=== PATIENT | female | born 1995 | race Two or more races ===

== ENCOUNTER 2020-06-07 01:21 | Emergency (ER) | payer SELFPAY ==
--- NOTE | ~2020-06-07 | XR_ITS ---
EXAMINATION: XR chest 1V portable DATE: 06/07/2020 01:58 INDICATION: Chest pain. Shortness of breath. TECHNIQUE: A single frontal view of the chest was obtained. COMPARISON: Chest CT 06/07/2020 FINDINGS: The chest demonstrates clear lungs without pneumonia, pleural effusion, or pneumothorax. Th e heart size is normal. IMPRESSION: 1. No acute cardiopulmonary disease. Reviewed, dictated and finalized at location A.
--- NOTE | ~2020-06-07 | CT_ITS ---
EXAMINATION: James Partida DATE: 06/07/2020 02:55 INDICATION: Epigastric abdominal pain. Chest pain. TECHNIQUE: Computed tomographic angiography (CTA) of the chest, abdomen, and pelvis was performed wit h 100 mL Omnipaque-350 intravenous contrast. Automated exposure control and iterative reconstruction technique were employed. The dose-length product was 563.54 mGy-cm. Maximum intensity projection 3D-r econstructions of the aorta and other arteries were constructed by the technologist on a separate wor kstation. COMPARISON: None. FINDINGS: CHEST CTA: There is no pneumonia or pleural effusion. The heart size is normal. No pericardial effusion. 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 Thoracic aorta is normal. There is no pulmonary embolus. ABDOMEN AND PELVIS CTA: The liver, spleen, pancreas, adrenal glands, and kidneys are normal. The gallbladder is distended. Th ere are no dilated loops of bowel. The appendix is normal. Abdominal aorta is normal. The mesenteric arteries and renal arteries are normal. There are no pathologically enlarged lymph nodes. There is no free intraperitoneal fluid. There is mild lumbar spondylosis. IMPRESSION: 1. Normal aorta. 2. Gallbladder distention, which may be secondary to fasting. Correlate with physical exam to exclude acute cholecystitis. Reviewed, dictated and finalized at location A. IMPRESSION: 1. Normal aorta. 2. Gallbladder distention, which may be secondary to fasting. Correlate with ph ysical exam to exclude acute cholecystitis.
[2020-06-07 01:21] VITALS: BP 125/60; PULSE 61; RESP 20; TEMP 36.7; O2SAT 100
--- NOTE | 2020-06-07 01:26 | ECG_ITS ---
Measurements Intervals [place] Rate: 57 P: 42 MN: 191 QRS: 63 QRSD: 89 T: 52 QT: 420 QTc: 410 Interpretive Statements SINUS BRADYCARDIA BASELINE WANDER- II, III, AVL, V2-V6 BORDERLINE ECG Electronically Signed On 06-07-2020 8:09:01 CDT by Navin Cagle D.O.
--- NOTE | 2020-06-07 01:31 | ED.CHESTPAIN ---
HPI - Chest Pain General Chief Complaint: Chest Pain Stated Complaint: diff breathing Time Seen by Provider: 06/07/20 01:28 History of Present Illness HPI narrative: previously healthy 25 yo female BIBEMS from home for chest pain. Sudden onset severe epigastric pain radiating to the chest and back for the past hour. Sharp in quality. Started while at home watching TV. Associated with shortness of breath and nausea. She has never had this type of pain before. No prior surgeries. Related Data Allergies Allergy/AdvReac Type Severity Reaction Status Date / Time No Known Allergies Allergy Unknown Verified 06/07/20 01:31 Review of Systems Review of Systems: All systems reviewed & are unremarkable except as noted in HPI and below Constitutional: Constitutional: Denies fever(s) Cardiovascular: Cardiovascular: Reports chest pain Respiratory: Respiratory: Reports dyspnea Gastrointestinal: Gastrointestinal: Reports abdominal pain and Reports nausea Musculoskeletal: Musculoskeletal: Reports back pain Neurologic: Denies numbness and Denies weakness PMFSH Social History Social History (Updated 06/07/20 @ 04:27 by James Partida MD) Smoking status: Never smoker Exam Const: General: alert Orientation/consciousness: patient oriented x3 Other: Mild distress HENMT: Head: normal to inspection Chest: Chest palpation & inspection: normal inspection of the chest and no tenderness Resp: Effort & Inspection: tachypneic Auscultation: clear to auscultation bilaterally Cardio: Rate: regular rate Rhythm: regular rhythm GI: Other: Moderate epigastric tenderness w/o rebound or guarding Skin: General skin exam: normal color Neuro: General: patient oriented x3, moves all extremities and CN's II-XI intact bilaterally Speech: normal speech Extrem: General: normal to inspection and no edema Course Vital Signs Vital signs: Vital Signs Temperature 36.7 C 06/07/20 01:21 Pulse Rate 61 06/07/20 01:21 Respiratory Rate 20 06/07/20 01:21 Blood Pressure 125/60 06/07/20 01:21 Pulse Oximetry 100 06/07/20 01:21 Temperature 36.7 C 06/07/20 01:21 Pulse Rate 64 06/07/20 03:58 Respiratory Rate 19 06/07/20 03:58 Blood Pressure 101/82 06/07/20 03:58 Pulse Oximetry 100 06/07/20 03:58 MDM - Chest Pain MDM Narrative Medical decision making narrative: EKG shows sinus jane. troponin negative. CTA shows distended galbladder with possible trace fluid. Mild elevation in white count. No fever. She is completely pain free on reevaluation. I will give her information for follow-up with general surgery. Medical Records Data Attestation: I reviewed the patient's medical records. Lab Data Attestation: I reviewed the patient's lab results. Result diagrams: 06/07/20 01:44 06/07/20 01:44 Labs: Lab Results 06/07/20 06/07/20 06/07/20 Range/Units 01:44 01:44 01:44 WBC 11.8 H (4.5-10.0) K/mm3 RBC 4.08 L (4.2-5.4) M/mm3 Hgb 12.4 (12.0-15.0) g/dL Hct 36.9 L (37.0-47.0) % MCV 90.4 (80-100) fl MCH 30.4 (26-34) pg MCHC 33.6 (32-36) g/dl RDW 12.5 (11.5-14.5) % Plt Count 278 (150-375) k/mm3 MPV 10.6 H (7.4-10.4) fl Immature Gran % (Auto) 0.3 (0-0.5) % Neut % (Auto) 57.8 (45.5-73.1) % Lymph % (Auto) 33.6 (18.3-44.2) % Rains % (Auto) 4.5 (2.6-8.5) % Eos % (Auto) 3.5 (0-4.4) % Baso % (Auto) 0.3 (0.2-1.2) % Lymph # (Auto) 3.97 H (0.9-3.2) K/mm3 Rains # (Auto) 0.5 (0.1-0.6) K/mm3 Eos # (Auto) 0.4 H (0-0.3) K/mm3 Baso # (Auto) 0.0 (0.0-0.1) K/mm3 Abs Immat Gran (auto) 0.03 (0.00-0.031) K/mm3 Absolute Neuts (auto) 6.8 H (1.3-6.7) K/mm3 Absolute Nucleated RBC 0.0 (0.0-0.012) K/mm3 Nucleated RBC % 0.0 (0.0-0.2) % D-Dimer 0.29 (<0.48) ug/mL Sodium 139 (137-145) mmol/L Potassium 3.3 L (3.4-5.0) mmol/L Chloride 101 (98-107) mmol/L Carbon Dioxide
[2020-06-07] MEDS: KETOROLAC 30 MG/ML VIAL (*BKC) IV PUSH (01:49)
[2020-06-07 01:52] LABS: Basophils Percent Auto 0.3 % (0.2-1.2); Eosinophils Absolute Auto 0.4 K/mm3 (0-0.3); Eosinophils Percent Auto 3.5 % (0-4.4); Hematocrit 36.9 % (37.0-47.0); Hemoglobin 12.4 g/dL (12.0-15.0); Immature Granulocyte Absolute 0.03 K/mm3 (0.00-0.031); Immature Granulocyte Percent A 0.3 % (0-0.5); Lymphocytes Absolute Auto 3.97 K/mm3 (0.9-3.2); Lymphocytes Percent Auto 33.6 % (18.3-44.2); Mean Corpuscular HGB Conc 33.6 g/dl (32-36); Mean Corpuscular Hemoglobin 30.4 pg (26-34); Mean Corpuscular Volume 90.4 fl (80-100); Mean Platelet Volume 10.6 fl (7.4-10.4); Monocytes Absolute Auto 0.5 K/mm3 (0.1-0.6); Monocytes Percent Auto 4.5 % (2.6-8.5); Neutrophils Absolute Auto 6.8 K/mm3 (1.3-6.7); Neutrophils Percent Auto 57.8 % (45.5-73.1); Platelet Count Result 278 k/mm3 (150-375); Red Blood Count 4.08 M/mm3 (4.2-5.4); Red Cell Distribution Width 12.5 % (11.5-14.5); White Blood Count 11.8 K/mm3 (4.5-10.0)
[2020-06-07 02:06] LABS: D Dimer 0.29 ug/mL (<0.48)
[2020-06-07 02:07] LABS: Alanine Aminotransferase 12 U/L (4-35); Albumin Level 4.7 g/dL (3.5-5.1); Alkaline Phosphatase 65 U/L (38-126); Anion Gap 15.3 mmol/L (7-16); Aspartate Amino Transferase 24 U/L (14-36); Bilirubin,Total 0.1 mg/dL (0.2-1.3); Blood Urea Nitrogen 27 mg/dL (7-17); Calcium 9.5 mg/dL (8.4-10.2); Carbon Dioxide 26 mmol/L (22-30); Chloride 101 mmol/L (98-107); Estimated CRCL calculation 136 ml/min; Estimated Glomerular Filt Rate > 60; Glucose 140 mg/dL (65-105); Potassium 3.3 mmol/L (3.4-5.0); Sodium 139 mmol/L (137-145)
[2020-06-07 02:09] LABS: Lipase 192 U/L (23-300)
[2020-06-07 02:18] LABS: Troponin I < 0.012 ng/mL (0.000-0.034)
[2020-06-07 02:38] VITALS: BP 122/78; PULSE 64; RESP 30; O2SAT 100
[2020-06-07] MEDS: MORPHINE SULFATE 2 MG/ML INJ IV PUSH (02:39)
[2020-06-07 03:37] LABS: Add Urine Microscopic? YES; Amorphous Sediment Urine Few; Appearance Urine Turbid (Clear); Bilirubin Urine Negative (Negative); Blood Urine 2+ (Negative); Color Urine Yellow (Yellow); Glucose Urine UA Negative (Negative); Ketones Urine Negative (Negative); Leukocyte Esterase Ur Negative LEU/UL (Negative); Mucus Urine Rare /lpf; Nitrate Urine Negative (Negative); Protein Urine Negative (Negative); Specific Grav Ur 1.024 (1.001-1.035); Squamous Epithelial Cell Urine Occasional /hpf (Few); Urobilinogen Urine Negative mg/dL (<2.0); WBC Urine 0-3 /hpf
[2020-06-07] MEDS: SODIUM CHLORIDE 0.9% IV 1,000 ML 150 ML IV CONT (03:57)
[2020-06-07] MEDS: SODIUM CHLORIDE 0.9% IV 1,000 ML 999 ML IV CONT (03:57)
[2020-06-07 03:58] VITALS: BP 101/82; PULSE 64; RESP 19; O2SAT 100
[2020-06-07] MEDS: ONDANSETRON INJ 4 MG/2 ML VIAL IV PUSH (03:58)
[2020-06-07 04:55] VITALS: BP 95/56; PULSE 54; RESP 18; O2SAT 100
== END 2020-06-07 05:10 | disposition home or self-care (01) ==
PROVIDERS: Emergency Provider Emergency Medicine
DX: K80.50 Calculus of bile duct without cholangitis or cholecystitis without obstruction (principal); R00.1 Bradycardia, unspecified
CPT/HCPCS: 36415; 71045; 71275; 74174; 80053; 81001; 81025; 83690; 84484; 85025; 85380; 93005; 96361; 96374; 96375; 99284; J1885; J2270; J2405; J7030; Q9967

== ENCOUNTER 2021-05-11 13:24 | Outpatient (RCR) | payer OTHER, SELFPAY ==
[2021-05-01 15:31] VITALS: BP 93/60; PULSE 86
[2021-05-04 11:30] VITALS: BP 86/62; PULSE 98
[2021-05-04 12:17] VITALS: BP 86/62; PULSE 97
--- NOTE | ~2021-05-11 | US_ITS ---
US OB BPP wo non-stress DATE: 05/01/2021 15:23 INDICATION: Intrauterine growth retardation TECHNIQUE: Real-time imaging and Doppler analysis COMPARISON: None FINDINGS: Live single intrauterine gestation, fetus in longitudinal lie, vertex presentation. The heart rate 129 bpm. Anterior placenta. Subjectively normal amount of amniotic fluid. And amniotic fluid pocket measuring 3.7 cm depth is not ed. BIOPHYSICAL PROFILE reported by operating theatre technician: breathin out of 2 movement: 2 out of 2 tone: 2 out of 2 Amniotic fluid pocket: 2 out of 2 Total score: 8 out of 8 IMPRESSION: Normal biophysical profile score of 8 out of 8 Reviewed, dictated and finalized at Location A. Reviewed, dictated and finalized at location A.
--- NOTE | ~2021-05-11 | US_ITS ---
EXAMINATION: US OB BPP wo non-stress DATE: 05/08/2021 11:56 INDICATION: Intrauterine growth retardation during third trimester . TECHNIQUE: Real-time pelvic ultrasound was performed. The interpreting radiologist was not present fo r the study. COMPARISON: 05/01/2021 FINDINGS: There is a single living fetus in vertex presentation. The placenta is anterior. heart rate is 167 beats per minute (bpm). Biophysical profile performed by the technologist: breathing (30 sec sustained breathing in 30 minutes): 2 out of 2 movement (3 gross body movements in 30 minutes): 2 out of 2 tone (one episode of wqczftb-szezysqwv-egiepgr limb movement): 2 out of 2 Amniotic fluid pocket (2 cm): 2 out of 2 Total score: 8 out of 8 IMPRESSION: 1. Single living fetus in vertex presentation with heart rate of 167 bpm. 2. Biophysical profile 8 out of 8. Reviewed, dictated and finalized at location A.
[2021-05-11 13:55] VITALS: BP 87/58; PULSE 102
== END 2021-06-04 08:54 | disposition home or self-care (01) ==
LOC: ANHOBOP 13:24
PROVIDERS: Visit Provider Obstetrics & Gynecology
DX: O36.5930 Maternal care for other known or suspected poor fetal growth, third trimester, not applicable or unspecified (principal); Z3A.36 36 weeks gestation of pregnancy; Z3A.37 37 weeks gestation of pregnancy
CPT/HCPCS: 59025; 76819

== ENCOUNTER 2021-05-31 06:00 | Inpatient (IN) | payer OTHER, SELFPAY ==
[2021-05-31] VITALS (47 sets, daily range): BP systolic 68–121; BP diastolic 35–82; PULSE 57–179; RESP 18; TEMP 36.2–36.8; O2SAT 94–100; BMI 28.5
--- NOTE | 2021-05-31 06:00 | LDADM ---
This patient, Blanca Harry, was admitted to Labor/Delivery/Recovery 105 on 05/31/21 at 06:00. Plans for labor, pain management and were discussed with patient. Patient/family oriented to hospital policies and general routines including ID bracelet, bed and alarms, visiting hours, pain management, procedures, bathroom and other care routines, personal items, smoking policy, room service/diet and guest tray routines, security routines, and visiting hours. Patient/Family are encouraged to report perceived risks to care and to ask questions if they do not understand what they are told or what they should do. See OBIX for further documentation.
[2021-05-31] MEDS: LACTATED RINGERS 1,000 ML 125 ML IV CONT ×2 (06:44→08:30)
[2021-05-31] MEDS: OXYTOCIN 30 UNITS/NS 500 ML 30 UNITS/500 ML BAG IV CONT (06:45)
[2021-05-31 07:05] LABS: Basophils Absolute Auto 0.1 K/mm3 (0.0-0.1); Basophils Percent Auto 0.7 % (0.2-1.2); Eosinophils Absolute Auto 0.4 K/mm3 (0-0.3); Eosinophils Percent Auto 2.9 % (0-4.4); Hematocrit 31.3 % (37.0-47.0); Hemoglobin 9.8 g/dL (12.0-15.0); Immature Granulocyte Absolute 0.54 K/mm3 (0.00-0.031); Immature Granulocyte Percent A 4.4 % (0-0.5); Lymphocytes Absolute Auto 2.49 K/mm3 (0.9-3.2); Lymphocytes Percent Auto 20.1 % (18.3-44.2); Mean Corpuscular HGB Conc 31.3 g/dl (32-36); Mean Corpuscular Hemoglobin 26.8 pg (26-34); Mean Corpuscular Volume 85.8 fl (80-100); Mean Platelet Volume 10.3 fl (7.4-10.4); Monocytes Absolute Auto 0.8 K/mm3 (0.1-0.6); Monocytes Percent Auto 6.5 % (2.6-8.5); Neutrophils Absolute Auto 8.1 K/mm3 (1.3-6.7); Neutrophils Percent Auto 65.4 % (45.5-73.1); Platelet Count Result 292 k/mm3 (150-375); Red Blood Count 3.65 M/mm3 (4.2-5.4); Red Cell Distribution Width 13.7 % (11.5-14.5); White Blood Count 12.4 K/mm3 (4.5-10.0)
[2021-05-31] MEDS: fentaNYL CITRATE INJ (*CRX) 100 MCG/2 ML VIAL 50 MCG IV PUSH ×2 (08:30→09:39)
--- NOTE | 2021-05-31 09:56 | P.PNAN_ITS ---
Anes - Eval Pre Procedure Procedure: Labor Epidural Date/Time: 05/31/21 09:56 Surgeon: Veronica Preop Diagnosis: Labor Pain Pre Op Diagnosis: IOL Patient Data Age: 26 Gender: F Height: 1.57 m Weight: 70.9 kg Last Vital Signs Temp 36.8 C 05/31/21 08:00 Pulse 75 05/31/21 09:30 BP 115/74 05/31/21 09:30 Allergies Allergy/AdvReac Type Severity Reaction Status Date / Time No Known Allergies Allergy Unknown Verified 05/31/21 07:30 Home Medications Medication Instructions Recorded Confirmed Type PNV cmb#95-ferrous fumarate-FA 1 tablet PO DAILY 05/01/21 05/31/21 History [] Laboratory Tests 05/31/21 05/31/21 05/31/21 06:48 06:48 06:48 WBC 12.4 K/mm3 H K/mm3 (4.5-10.0) RBC 3.65 M/mm3 L M/mm3 (4.2-5.4) Hgb 9.8 g/dL L g/dL (12.0-15.0) Hct 31.3 % L % (37.0-47.0) MCV 85.8 fl fl (80-100) MCH 26.8 pg pg (26-34) MCHC 31.3 g/dl L g/dl (32-36) RDW 13.7 % % (11.5-14.5) Plt Count 292 k/mm3 k/mm3 (150-375) MPV 10.3 fl fl (7.4-10.4) Immature Gran % (Auto) 4.4 % H % (0-0.5) Neut % (Auto) 65.4 % % (45.5-73.1) Lymph % (Auto) 20.1 % % (18.3-44.2) Antelope % (Auto) 6.5 % % (2.6-8.5) Eos % (Auto) 2.9 % % (0-4.4) Baso % (Auto) 0.7 % % (0.2-1.2) Lymph # (Auto) 2.49 K/mm3 K/mm3 (0.9-3.2) Antelope # (Auto) 0.8 K/mm3 H K/mm3 (0.1-0.6) Eos # (Auto) 0.4 K/mm3 H K/mm3 (0-0.3) Baso # (Auto) 0.1 K/mm3 K/mm3 (0.0-0.1) Abs Immat Gran (auto) 0.54 K/mm3 H K/mm3 (0.00-0.031) Absolute Neuts (auto) 8.1 K/mm3 H K/mm3 (1.3-6.7) Absolute Nucleated RBC 0.0 K/mm3 K/mm3 (0.0-0.012) Nucleated RBC % 0.0 % % (0.0-0.2) RPR Pending Blood Type O Positive Antibody Screen Negative : gestational age (JAIRO 06/11/21) Patient hx anesthesia problems: none Family hx anesthesia problems: none PMFSH Family History Family History Other No pertinent family history Social History Social History Smoking status: Never smoker Substance use: never Gender identity (if verbalized by the patient): Female Spiritual care concerns: No Exam Day of Procedure 05/31/21 09:56 Patient weight: normal Heart: regular rate and rhythm Lungs: normal air movement Airway: Mallampati scale class II Neurological: alert and oriented
--- NOTE | 2021-05-31 11:47 | WPDHPUPDATE1 ---
History and Physical Update Update Date/Time: 05/31/21 11:47 History and Physical has been reviewed, including an updated exam of the patient. There are NO changes in the patient's condition. Risks, benefits, and alternatives have been discussed and questions answered. Patient agrees to proceed with procedure.
--- NOTE | 2021-05-31 11:47 | WPDOBADMIT ---
Obstetrics - Admit Note Admission Note: record reviewed. No pertinent additions to the history and/or any subsequent changes in the physical findings that are not consistent with the expected course of the were found. Additions to the history and/or subsequent changes in the physical findings follow. None.
--- NOTE | 2021-05-31 11:47 | PM.OBPRVD ---
OB - Delivery Note Procedure events: Placental Insufficiency Episiotomy description: None Laceration Description: Vaginal - 2nd Degree Delivery repair: chromic Specimen: Yes Quantitative Blood Loss (ml): 300 Anesthesia type: Epidural Disposition: floor Narrative: Patient prepped in usual manner for this procedure. Maternal expulsive efforts readily delivered vertex over intact perineum. Rest of baby was delivered without difficulty cord clamped and cut and placenta delivered spontaneously. Cervix vagina vulva were inspected with second-degree laceration noted. This was approximated using 2 0 chromic to approximate the vaginal tissue deep tissue and subcuticular layer. At this point the uterus well contracted no significant bleeding and the procedure was considered terminated. Immediate postoperative condition mother and baby were both excellent. Baby Weeks of gestation at delivery: 38 gender: Male Weight (pounds): 6 Weight (ounces): 5 score one minute: 9 score five minutes: 9
[2021-05-31] MEDS: OXYTOCIN 30 UNITS/NS 500 ML 30 UNITS/500 ML BAG 125 UNITS IV CONT (12:04)
[2021-05-31 12:56] LABS: Rapid Plasma Reagin Non-Reactive (NonReactive)
[2021-05-31] MEDS: WITCH HAZEL 40 PADS 1 PAD TOPICAL (14:48)
[2021-05-31] MEDS: BENZOCAINE 20% AER SPR (*SP) 56 GM CAN 1 SPRAY TOPICAL (14:49)
[2021-05-31] MEDS: IBUPROFEN 600 MG TABLET PO (15:00)
--- NOTE | 2021-05-31 15:15 | PC.NURSE ---
Patient transferred to room 115 for care. No change in RN.
[2021-05-31] MEDS: ACETAMINOPHEN 325 MG TABLET 650 MG PO (17:38)
[2021-05-31] MEDS: POLYSACCHARIDE IRON COMPLEX 150 MG CAPSULE PO (19:47)
[2021-06-01] MEDS: IBUPROFEN 600 MG TABLET PO ×2 (01:38→11:48)
[2021-06-01 04:23] VITALS: BP 94/61; PULSE 64
[2021-06-01 04:26] VITALS: TEMP 36.6
[2021-06-01 05:09] LABS: Hematocrit 27.2 % (37.0-47.0); Hemoglobin 8.7 g/dL (12.0-15.0)
--- NOTE | 2021-06-01 08:45 | P.DS_ITS ---
DS: Admitting Diagnosis Admitting Diagnosis Admitting Diagnosis: OB - DS: Summary OB Procedures : None OB Procedures Intrapartum: Spontaneous Vag Delivery OB Procedures: : None Time Spent with Patient Time attestation: Total time spent providing and/or coordinating discharge services: DS: Data Data Completed and Pending Pending studies at discharge: Pending at discharge 05/31/21 11:36 Surgical [PTH] Routine Labs on day of discharge: Labs from last 24 hours 06/01/21 05/31/21 04:22 06:48 Hgb 8.7 L Hct 27.2 L RPR Non-reactive Discharge Plan Discharge Discharging Clinician: Russell Martin Patient Disposition: Home, Self-Care Activity: as tolerated Diet: as tolerated Patient Instructions: Antibiotic Form Stand Alone Forms: General Discharge Information Follow-up/Referrals: Russell Martin MD [Physician] - 3 Weeks Discharge Medications: New ibuprofen 600 mg Tablet 600 mg PO Q6H PRN (Reason: Cramping) Qty: 30 RF: 0 Continued PNV cmb#95-ferrous fumarate-FA [] 28 mg iron- 800 mcg Tablet 1 tablet PO DAILY RF: 0 Date of admission: 05/31/21 06:00 Primary Care Provider: PHYSICIAN,SUPERVISOR RUBBER [employer]OVERING Admitting Provider: Russell Martin Attending physician on admission: Russell Martin Condition: Stable
[2021-06-01 09:08] VITALS: PULSE 84; O2SAT 99
[2021-06-01 09:09] VITALS: BP 106/59; PULSE 69
[2021-06-01] MEDS: POLYSACCHARIDE IRON COMPLEX 150 MG CAPSULE PO (09:19)
[2021-06-01] MEDS: MULTIVIT/MIN/PREN/FOL AC/IRON TABLET 1 TAB PO (09:19)
[2021-06-01 09:28] VITALS: BP 106/59; PULSE 72; RESP 16; TEMP 36.8; O2SAT 100
[2021-06-01] MEDS: MEASLES,MUMPS,RUBELLA VACCINE 0.5 ML VIAL SUB-Q (12:09)
[2021-06-01] MEDS: WITCH HAZEL 40 PADS 1 PAD TOPICAL (13:05)
[2021-06-01] MEDS: BENZOCAINE 20% AER SPR (*SP) 56 GM CAN 1 SPRAY TOPICAL (13:05)
[2021-06-04 10:04] VITALS: BP 115/69; PULSE 64; RESP 20; TEMP 37.3; O2SAT 100
== END 2021-06-01 13:45 | disposition home or self-care (01) | DRG 560 ==
LOC: ANHLDR 06:26 → ANHOBPP 15:47
PROVIDERS: Admitting Provider Obstetrics & Gynecology; Visit Provider Obstetrics & Gynecology
DX: O36.5130 Maternal care for known or suspected placental insufficiency, third trimester, not applicable or unspecified (principal); Z37.0 Single live birth; Z3A.38 38 weeks gestation of pregnancy; O36.5930 Maternal care for other known or suspected poor fetal growth, third trimester, not applicable or unspecified; O70.1 Second degree perineal laceration during delivery
CPT/HCPCS: 36415; 85014; 85018; 85025; 86592; 86850; 86900; 86901; 88307; 90710; A9270; J2590; J2795; J3010; J7120

== ENCOUNTER 2022-03-29 20:20 | Emergency (ER) | payer OTHER, SELFPAY ==
[2022-03-29] VITALS (22 sets, daily range): BP systolic 88–119; BP diastolic 57–83; PULSE 71–91; RESP 15–32; TEMP 36.4; O2SAT 97–100
--- NOTE | 2022-03-29 20:25 | ECG_ITS ---
Measurements Intervals [place] Rate: 76 P: 28 NE: 190 QRS: 52 QRSD: 89 T: 41 QT: 377 QTc: 424 Interpretive Statements SINUS RHYTHM EARLY PRECORDIAL R/S TRANSITION BORDERLINE ECG Electronically Signed On 03-29-2022 20:44:02 CDT by Navin Cagle D.O.
--- NOTE | 2022-03-29 20:59 | PC.NURSE ---
Per [place] [facility], peak of loratidine is 1.5 hours post ingestion time of 1944. Rule out coingestion with drug screen, and provide symptomatic, supportive care. Case# [id number].
[2022-03-29] MEDS: SODIUM CHLORIDE 0.9% IV 1,000 ML 999 ML IV CONT (21:10)
[2022-03-29] MEDS: ONDANSETRON INJ 4 MG/2 ML VIAL IV PUSH (21:10)
[2022-03-29 21:30] LABS: Basophils Percent Auto 0.4 % (0.2-1.2); Eosinophils Absolute Auto 0.5 K/mm3 (0-0.3); Eosinophils Percent Auto 5.6 % (0-4.4); Hematocrit 38.5 % (37.0-47.0); Hemoglobin 12.7 g/dL (12.0-15.0); Immature Granulocyte Absolute 0.04 K/mm3 (0.00-0.031); Immature Granulocyte Percent A 0.4 % (0-0.5); Lymphocytes Absolute Auto 2.52 K/mm3 (0.9-3.2); Lymphocytes Percent Auto 28.3 % (18.3-44.2); Mean Corpuscular Hemoglobin 30.1 pg (26-34); Mean Corpuscular Volume 91.2 fl (80-100); Mean Platelet Volume 10.4 fl (7.4-10.4); Monocytes Absolute Auto 0.5 K/mm3 (0.1-0.6); Neutrophils Absolute Auto 5.3 K/mm3 (1.3-6.7); Neutrophils Percent Auto 59.3 % (45.5-73.1); Platelet Count Result 290 k/mm3 (150-375); Red Blood Count 4.22 M/mm3 (4.2-5.4); Red Cell Distribution Width 12.5 % (11.5-14.5); White Blood Count 8.9 K/mm3 (4.5-10.0)
[2022-03-29 21:36] LABS: Add Urine Microscopic? YES; Appearance Urine Clear (Clear); Bilirubin Urine 1+ (Negative); Blood Urine Negative (Negative); Color Urine Yellow (Yellow); Glucose Urine UA Negative (Negative); Ketones Urine 1+ mg/dL (Negative); Leukocyte Esterase Ur 2+ LEU/UL (Negative); Nitrate Urine Negative (Negative); Protein Urine Negative (Negative); Specific Grav Ur >= 1.030 (1.001-1.035); Urobilinogen Urine 0.2 mg/dL (<2.0); pH Urine 5.5 (5.0-9.0)
[2022-03-29 21:38] LABS: Acetaminophen < 10 ug/mL (10-30); Ethanol < 10 mg/dL (<10); Salicylate < 1.0 mg/dL (2-20)
[2022-03-29 21:47] LABS: Bacteria Urine Trace /hpf; Mucus Urine Heavy /lpf; Squamous Epithelial Cell Urine Many /hpf (Few); WBC Urine 31-50 /hpf
[2022-03-29 21:48] LABS: Alanine Aminotransferase 16 U/L (6-35); Albumin Level 4.4 g/dL (3.5-5.1); Alkaline Phosphatase 64 U/L (38-126); Anion Gap 9 mmol/L (8-16); Aspartate Amino Transferase 28 U/L (14-36); Bilirubin,Total 0.7 mg/dL (0.2-1.3); Blood Urea Nitrogen 15 mg/dL (7-17); Calcium 8.7 mg/dL (8.4-10.2); Carbon Dioxide 23 mmol/L (22-30); Chloride 106 mmol/L (98-107); Estimated CRCL calculation 99 ml/min; Estimated Glomerular Filt Rate > 60; Glucose 105 mg/dL (65-110); Magnesium 1.9 mg/dL (1.6-2.3); Potassium 3.5 mmol/L (3.4-5.0); Sodium 138 mmol/L (137-145)
[2022-03-29 21:51] LABS: Amphetamine Screen Urine Negative (Negative); Barbiturate Screen Urine Negative (Negative); Benzodiazepines Screen Urine Negative (Negative); Cannabinoid Screen Urine Negative (Negative); Cocaine Screen Urine Negative (Negative); Methadone Screen Urine Negative (Negative); Opiate Screen Urine Negative (Negative); Phencyclidine Screen Urine Negative (Negative)
--- NOTE | 2022-03-29 22:04 | ED.OVERDOSE ---
HPI - Overdose General Chief Complaint: Overdose Stated Complaint: 20-30 allergy pills suicidal History of Present Illness HPI Narrative: Patient states that she was having argument with her , she was very upset so she took about 20 pills out of the pill bottle (claritin). She is endorsing some mild nausea, and says that the last 3 days she has been having some pain with urination. Related Data Home Medications Medication Instructions Recorded Confirmed PNV cmb#95-ferrous fumarate-FA 1 tablet PO DAILY 05/01/21 05/31/21 [] Allergies Allergy/AdvReac Type Severity Reaction Status Date / Time No Known Allergies Allergy Unknown Verified 05/31/21 07:30 Review of Systems Review of Systems: CONST: No weakness. HEENT: No sore throat C/V: No chest pain RESP: No cough GI: Mild nausea : Dysuria M/S: No muscle pain SKIN: Itchy rash bilateral hands NEURO: [No focal numbness or weakness] PSYCH: [No depression] [facility] Past Medical History Medical History (Updated 03/30/22 @ 00:47 by Nessa Hogan MD) No significant medical problems Family History Family History Other No pertinent family history Social History Social History Smoking status: Never smoker Substance use: never Substance use type: does not use Gender identity (if verbalized by the patient): Female Spiritual care concerns: No Exam Narrative: EXAMINATION OF ORGAN SYSTEMS/BODY AREAS: Constitutional: Vital signs per nursing GENERAL: Tearful HEAD: Normal with no signs of head trauma. EYES: EOMI, conjunctiva normal ENT: Hearing grossly intact LUNGS: Nonlabored breathing. HEART: [Regular rate and rhythm] ABD: [Soft], nontender to palpation EXT: Normal range of motion SKIN: Pruritic papules around the finger webs of both hands NEURO: [Alert and oriented x 3. No gross focal sensory or strength deficits.] PSYCH: Tearful affect Course Course Emergency Course: 27-year-old female presenting with intentional overdose, vital signs stable, exam shows tearful patient with some itchy bumps on her hands, no flank pain, labs notable for UTI, normal CMP and CBC, poison control consulted recommend supportive care and no further recommendations/concerns, she is cleared by them. I also suspect diagnosis of scabies versus eczema, given the appearance of the lesions and location, she is treated for both UTI and scabies, given IV fluids and zofran, no abdominal pain or vaginal discharge to suspect STD. Patient is medically clear for psychiatric evaluation. She is evaluated by psychiatry and states she does not sure why she took the pills, but denies wanting to hurt herself at this time, denies any suicidal ideation either tonight or ever. Psychiatry feels she is stable for discharge home, safety plan initiated, they will call her for follow-up. Vital Signs Vital signs: Vital Signs Respiratory Rate 22 H 03/29/22 20:20 Temperature 97.6 F 03/29/22 20:32 Pulse Rate 76 03/29/22 22:30 Respiratory Rate 22 H 03/29/22 22:30 Blood Pressure 105/72 03/29/22 22:01 Pulse Oximetry 100 03/29/22 22:30 MDM - Overdose Lab Data Result diagrams: 03/29/22 21:14 03/29/22 21:14 Labs: Lab Results 03/29/22 03/29/22 03/29/22 Range/Units 21:14 21:14 21:14 WBC 8.9 (4.5-10.0) K/mm3 RBC 4.22 (4.2-5.4) M/mm3 Hgb 12.7 D (12.0-15.0) g/dL Hct 38.5 (37.0-47.0) % MCV 91.2 (80-100) fl MCH 30.1 (26-34) pg MCHC 33.0 (32-36) g/dl RDW 12.5 (11.5-14.5) % Plt Count 290 (150-375) k/mm3 MPV 10.4 (7.4-10.4) fl Immature Gran % (Auto) 0.4 (0-0.5) % Neut % (Auto) 59.3 (45.5-73.1) % Lymph % (Auto) 28.3 (18.3-44.2) % [place] % (Auto) 6.0 (2.6-8.5) % Eos % (Auto) 5.6 H (0-4.4) % Baso % (Auto) 0.4 (0.2-1.2) % Lymph # (Auto) 2.52 (0.9-3.2) K/mm
[2022-03-29 22:09] LABS: SARS-CoV-2 RNA PCR Negative
--- NOTE | 2022-03-29 22:13 | PC.NURSE ---
Pt medically cleared by ED MD DR. Hogan. Crisis called by this RN, and they report they need case closed with poison control as well.
[2022-03-29 22:19] LABS: Thyroid Stimulating Hormone 0.748 uIU/mL (0.465-4.680)
--- NOTE | 2022-03-29 22:45 | PC.NURSE ---
This RN spoke with [facility] Control nurse who states that she cannot close the case until the patient has a known discharge/transfer destination. However, based on toxicology, pt is cleared and requires no further monitoring.
[2022-03-29] MEDS: PERMETHRIN 5% CREAM 60 GM TUBE 1 APPLIC TOPICAL (22:51)
[2022-03-29] MEDS: cefTRIAXone 2 GM in SODIUM CHLORIDE 0.9% IV 100 ML 200 ML IVPB (23:47)
--- NOTE | 2022-03-30 00:16 | PC.NURSE ---
Crisis in the ER for evaluation of patient
--- NOTE | 2022-03-30 00:39 | PC.NURSE ---
when pt initially arrived to the ER pt was changed into green scrubs, but clothing and phone left in the room due to contact precautions and having sitter at bedside, pt not wanting to harm self upon arrival to ER
--- NOTE | 2022-03-30 03:41 | PC.NURSE ---
0056- Aminata Recio from poison control returned call to see what crisis had recommended, informed that pt is to be d/c home with safety plan.
== END 2022-03-30 01:15 | disposition home or self-care (01) ==
PROVIDERS: Emergency Provider Emergency Medicine
DX: T45.0X4A Poisoning by antiallergic and antiemetic drugs, undetermined, initial encounter (principal); N30.01 Acute cystitis with hematuria; Z20.822 Contact with and (suspected) exposure to COVID-19
CPT/HCPCS: 36415; 80053; 80307; 81001; 81025; 83735; 84443; 85025; 87086; 87088; 93005; 96361; 96365; 96375; 99284; A9270; C9803; J0696; J2405; J7030; U0003; U0005

== ENCOUNTER 2023-04-13 06:23 | Emergency (ER) | payer OTHER, SELFPAY ==
[2023-04-13 06:24] VITALS: BP 116/84; PULSE 83; RESP 18; TEMP 36.1; O2SAT 99
--- NOTE | 2023-04-13 07:26 | ED.URI ---
HPI - URI/Sore Throat General Chief Complaint: Upper Respiratory Infection Stated Complaint: congestion for 7 months and facial pain for 2 days Time Seen by Provider: 04/13/23 07:26 Source: patient Mode of arrival: ambulatory Limitations: no limitations History of Present Illness HPI Narrative: 28 years old female presents with nasal congestion, nasal and postnasal thick yellow discharge, left facial pain started 7 months ago, got worse over the last few days. She denies any fever, chills, nausea, vomiting. Facial pain get worse when she bends over, she is . Did not see any physician yet for her upper complain Related Data Allergies Allergy/AdvReac Type Severity Reaction Status Date / Time No Known Allergies Allergy Unknown Verified 04/01/23 15:28 Review of Systems Review of Systems: All systems reviewed & are unremarkable except as noted in HPI and below PMFSH Past Medical History Medical History No significant medical problems Family History Family History Mother Diabetes mellitus Grandparent Hypertension Social History Social History Smoking status: Never smoker Substance use: never Substance use type: does not use Gender identity (if verbalized by the patient): Female Spiritual care concerns: No Exam Narrative: General appearance: Well-developed, well-nourished Skin: Normal color Head: Normocephalic, nontraumatic Eyes: Clear conjunctiva ENT: Oropharynx normal, ears normal, nose normal diffuse severe tenderness left face, no bruises, no swelling, no rash, no warmth Neck: Supple, nontender Chest and respiratory: Airway patent, no respiratory distress, no accessory muscle use Heart: Regular rate/rhythm Neurologic: Alert and oriented ?3, VEHICLE PAINTER is normal as tested, no gross motor deficit Course Reevaluation(s) Reevaluation #1: Patient feeling okay and agreed with the discharge instructions. Date: 04/13/23 Time: 09:22 Vital Signs Vital signs: Vital Signs Temperature 36.1 C L 04/13/23 06:24 Pulse Rate 83 04/13/23 06:24 Respiratory Rate 18 04/13/23 06:24 Blood Pressure 116/84 05/29/23 06:24 Pulse Oximetry 99 04/13/23 06:24 Oxygen Delivery Room Air 04/13/23 06:24 Temperature 36.1 C L 04/13/23 06:24 Pulse Rate 77 04/13/23 07:47 Respiratory Rate 18 04/13/23 07:47 Blood Pressure 104/77 04/13/23 07:47 Pulse Oximetry 100 04/13/23 07:47 Oxygen Delivery Room Air 04/13/23 06:24 MDM - URI/Sore Throat MDM Narrative Medical decision making narrative: Patient presents with symptoms of sinusitis, over the last 7 months, initially patient high likely had viral versus allergy causing her bacterial sinusitis at this time. My plan to discharge patient on Augmentin, Atrovent nasal spray. Tylenol, ibuprofen as needed. Differential Diagnosis Differential diagnosis: Likely upper respiratory infection, sinusitis and viral infection Critical Care Time Critical Care Time Critical Care Time: No Discharge Plan Discharge Clinical Impression: Sinusitis Patient Disposition: Home, Self-Care Condition: Stable Instructions: Antibiotic Form, Sinusitis (ED) Additional Instructions: Return if symptoms are worsening , call your family physician for appointment, take Tylenol as as needed for aches and pain, continue home medications., Warm compresses, encourage fluid intake, keep head elevated during sleep, Tylenol as needed, hot water vapor inhalation Prescriptions: New amoxicillin-pot clavulanate [Augment
[2023-04-13 07:47] VITALS: BP 104/77; PULSE 77; RESP 18; O2SAT 100
== END 2023-04-13 07:48 | disposition home or self-care (01) ==
PROVIDERS: Emergency Provider Emergency Medicine
DX: J32.9 Chronic sinusitis, unspecified (principal)
CPT/HCPCS: 99283

== ENCOUNTER 2023-10-18 05:00 | Inpatient (IN) | payer OTHER, SELFPAY ==
[2023-10-18] VITALS (82 sets, daily range): BP systolic 69–126; BP diastolic 41–94; PULSE 60–106; RESP 16; TEMP 36.4–37.3; O2SAT 97–100; BMI 33.5
--- NOTE | 2023-10-18 05:33 | LDADM ---
This patient, Blanca Harry, was admitted to Labor/Delivery/Recovery 104 on 10/18/23 at 05:00. Plans for labor, pain management and were discussed with patient. Patient/family oriented to hospital policies and general routines including ID bracelet, bed and alarms, visiting hours, pain management, procedures, bathroom and other care routines, personal items, smoking policy, room service/diet and guest tray routines, security routines, and visiting hours. Patient/Family are encouraged to report perceived risks to care and to ask questions if they do not understand what they are told or what they should do. See OBIX for further documentation.
[2023-10-18 05:44] LABS: Basophils Absolute Auto 0.1 K/mm3 (0.0-0.1); Basophils Percent Auto 0.5 % (0.2-1.2); Eosinophils Absolute Auto 0.2 K/mm3 (0-0.3); Eosinophils Percent Auto 1.6 % (0-4.4); Hematocrit 33.8 % (37.0-47.0); Hemoglobin 10.6 g/dL (12.0-15.0); Immature Granulocyte Absolute 0.37 K/mm3 (0.00-0.031); Immature Granulocyte Percent A 2.9 % (0-0.5); Lymphocytes Absolute Auto 2.71 K/mm3 (0.9-3.2); Lymphocytes Percent Auto 21.2 % (18.3-44.2); Mean Corpuscular HGB Conc 31.4 g/dl (32-36); Mean Corpuscular Hemoglobin 26.5 pg (26-34); Mean Corpuscular Volume 84.5 fl (80-100); Mean Platelet Volume 10.1 fl (7.4-10.4); Monocytes Absolute Auto 0.7 K/mm3 (0.1-0.6); Monocytes Percent Auto 5.5 % (2.6-8.5); Neutrophils Absolute Auto 8.8 K/mm3 (1.3-6.7); Neutrophils Percent Auto 68.3 % (45.5-73.1); Platelet Count Result 273 k/mm3 (150-375); Red Cell Distribution Width 14.4 % (11.5-14.5); White Blood Count 12.8 K/mm3 (4.5-10.0)
[2023-10-18] MEDS: OXYTOCIN 30 UNITS/NS 500 ML 30 UNITS/500 ML BAG IV CONT (06:31)
[2023-10-18] MEDS: LACTATED RINGERS 1,000 ML 125 ML IV CONT ×2 (06:31→08:28)
--- NOTE | 2023-10-18 07:06 | WPDANESEPP ---
Anes - Eval Pre Procedure Procedure: labor epidural Date/Time: 10/18/23 07:06 Surgeon: laura Preop Diagnosis: pain during labor Pre Op Diagnosis: IOL Patient Data Age: 28 Gender: F Height: 1.52 m Weight: 78 kg Last Vital Signs Pulse 82 10/18/23 07:00 BP 96/72 L 10/18/23 07:00 O2 Del Method Room Air 10/18/23 05:33 Allergies Allergy/AdvReac Type Severity Reaction Status Date / Time No Known Allergies Allergy Unknown Verified 10/13/23 09:24 Home Medications Medication Instructions Recorded Confirmed Type ondansetron 4 mg disintegrating 4 mg PO Q6H PRN nausea and 03/04/23 10/13/23 Rx tablet vomiting #30 tabs vit no.95-ferrous 1 tablet PO DAILY #90 tabs 03/04/23 10/18/23 Rx fumarate 28 mg-folic acid 800 mcg tablet () cetirizine 10 mg tablet (Zyrtec) 10 mg PO DAILY #30 tabs 04/01/23 10/13/23 Rx ipratropium bromide 42 mcg (0.06 2 spray intranasal QID 7 days #15 04/13/23 10/13/23 Rx %) nasal spray mL ferrous sulfate 325 mg (65 mg 325 mg PO DAILY 09/01/23 10/18/23 History iron) tablet Laboratory Tests 10/18/23 05:27 WBC 12.8 H K/mm3 (4.5-10.0) RBC 4.00 L M/mm3 (4.2-5.4) Hgb 10.6 L g/dL (12.0-15.0) Hct 33.8 L % (37.0-47.0) MCV 84.5 fl (80-100) MCH 26.5 pg (26-34) MCHC 31.4 L g/dl (32-36) RDW 14.4 % (11.5-14.5) Plt Count 273 k/mm3 (150-375) MPV 10.1 fl (7.4-10.4) Immature Gran % (Auto) 2.9 H % (0-0.5) Neut % (Auto) 68.3 % (45.5-73.1) Lymph % (Auto) 21.2 % (18.3-44.2) [place] % (Auto) 5.5 % (2.6-8.5) Eos % (Auto) 1.6 % (0-4.4) Baso % (Auto) 0.5 % (0.2-1.2) Lymph # (Auto) 2.71 K/mm3 (0.9-3.2) [place] # (Auto) 0.7 H K/mm3 (0.1-0.6) Eos # (Auto) 0.2 K/mm3 (0-0.3) Baso # (Auto) 0.1 K/mm3 (0.0-0.1) Abs Immat Gran (auto) 0.37 H K/mm3 (0.00-0.031) Absolute Neuts (auto) 8.8 H K/mm3 (1.3-6.7) Absolute Nucleated RBC 0.0 K/mm3 (0.0-0.012) Nucleated RBC % 0.0 % (0.0-0.2) RPR Pending Blood Type O Positive Antibody Screen Negative Patient hx anesthesia problems: none Family hx anesthesia problems: none Results Review: All pre-operative results and documents have been reviewed as part of the pre-operative evaluation. [facility] Past Medical History Medical History No significant medical problems Family History Family History Mother Diabetes mellitus Grandparent Hypertension Social History Social History Smoking status: Never smoker Second hand tobacco smoke exposure: No Alcohol intake: never Substance use: never Substance use type: does not use Lack of Transportation: No Lack of Food: Never True Current Housing: I Have Housing Concerned About Future Housing: No Difficulty Paying Gas/Electric Bills: No Difficulty Paying for Meds: No Currently Unemployed: No Education: High School Diploma/GED Difficulty w/ Childcare or Family Care: No Living arrangements: other Additional living arrangements comments: Occupation/Education: other Additional occupation/education comments: stay at home mom Gender identity (if verbalized by the patient): Female Sexual Orientation (if Verbalized by the Patient): Straight or Heterosexual Spiritual care concerns: No Exam Day of Procedure 10/18/23 07:06
--- NOTE | 2023-10-18 10:59 | P.PCNOB_ITS ---
OB - Vaginal Delivery Note Procedure Delivery date: 10/18/23 Induction method: Per Pitocin Protocol Delivery augmentation: Rupture of Membranes Delivery monitor: External FHT and External Uterine Route of delivery: Laceration Description: Perineal - 1st Degree Delivery repair: chromic Specimen: No Quantitative Blood Loss (ml): 200 Anesthesia type: Epidural Disposition: Floor Complications: No immediate complications Narrative: Patient prepped and draped usual manner for this procedure. Maternal expulsive efforts readily delivered vertex. Nuchal cord was noted and reduced, rest of baby was delivered without difficulty. Cord clamped cut and placenta delivered spontaneously. Cervix vagina vulva were inspected with first-degree vaginal wall laceration which approximated using 2-0 chromic in a running interlocking manner which approximated well and was hemostatic. Immediate postoperative condition of mother and baby were both excellent. [place] Baby Weeks of gestation at delivery: 39 Infant gender: Female Weight (pounds): 7 Weight (ounces): 7 presentation: vertex position: Right Occiput Anterior Placenta delivery description: Spontaneous Cord Vessel Description: 3 Vessels, Nuchal Cord and Reduced AMG Delivery Billing Delivery Delivery: Delivery Charge
--- NOTE | 2023-10-18 10:59 | WPDHPUPDATE1 ---
History and Physical Update Update Date/Time: 10/18/23 10:59 History and Physical has been reviewed, including an updated exam of the patient. There are NO changes in the patient's condition. Risks, benefits, and alternatives have been discussed and questions answered. Patient agrees to proceed with procedure.
[2023-10-18] MEDS: OXYTOCIN 30 UNITS/NS 500 ML 30 UNITS/500 ML BAG 125 UNITS IV CONT (11:17)
[2023-10-18] MEDS: IBUPROFEN 600 MG TABLET PO ×2 (13:19→20:13)
[2023-10-18] MEDS: WITCH HAZEL 40 PADS 1 PAD TOPICAL (13:20)
[2023-10-19 06:01] LABS: Hematocrit 32.4 % (37.0-47.0); Hemoglobin 10.2 g/dL (12.0-15.0)
[2023-10-19 08:20] VITALS: BP 108/69; PULSE 92; RESP 16; TEMP 37.1; O2SAT 99
--- NOTE | 2023-10-19 08:24 | WPDANLDPN2 ---
Anes-Prog Note L&D Date/Time: 10/19/23 08:24 Comfortable throughout: labor and delivery Neuraxial method: epidural Epidural/Spinal procedure site: clean & non-tender Neuro status: Neuro function grossly intact. Cardiovascular status: normal Respiratory status: normal Airway patency: baseline Mental status: baseline Post-Op hydration status: normal Vital Signs: Last Vital Signs Temp 37.3 C 10/18/23 20:00 Pulse 69 10/18/23 20:00 Resp 16 10/18/23 20:00 BP 99/63 L 10/18/23 20:00 Pulse Ox 98 10/18/23 20:00 O2 Del Method Room Air 10/18/23 05:33 Pain score (VAS): 3 Post-procedural complaints: none Patient feedback: Patient satisfied with anesthetic care.
[2023-10-19] MEDS: DOCUSATE SODIUM 100 MG CAPSULE PO (08:34)
[2023-10-19] MEDS: MULTIVIT/MIN/PREN/FOL AC/IRON TABLET 1 TAB PO (08:35)
[2023-10-19] MEDS: IBUPROFEN 600 MG TABLET PO (08:41)
[2023-10-19] MEDS: ACETAMINOPHEN 325 MG TABLET 650 MG PO (08:43)
--- NOTE | 2023-10-19 10:32 | P.DS_ITS ---
DS: Admitting Diagnosis Discharge Date 10/19/2023 Admitting Diagnosis DS: Discharge Diagnosis Discharge Diagnosis (1) , delivered: Code(s): O80 - Encounter for full-term uncomplicated delivery Status: Acute OB - DS: Summary OB Procedures : None OB Procedures Intrapartum: Spontaneous Vag Delivery OB Procedures: : None Peripartum Data Laceration Description: Perineal - 1st Degree Time Spent with Patient Time attestation: Total time spent providing and/or coordinating discharge services: DS: Data Data Completed and Pending Labs on day of discharge: Labs from last 24 hours 10/19/23 05:23 Hgb 10.2 L Hct 32.4 L Discharge Plan Discharge Discharging Clinician: Russell Martin Patient Disposition: Home, Self-Care Activity: as tolerated Diet: as tolerated Patient Instructions: Antibiotic Form Stand Alone Forms: General Discharge Information Follow-up/Referrals: Russell Martin MD [Physician] - 3 Weeks Discharge Medications: New ibuprofen 600 mg Tablet 600 mg PO Q6H PRN (Reason: Cramping) Qty: 30 0RF Continued cetirizine [Zyrtec] 10 mg tablet 10 mg PO DAILY Qty: 30 1RF ferrous sulfate 325 mg (65 mg iron) tablet 325 mg PO DAILY ipratropium bromide 42 mcg (0.06 %) spray,non-aerosol 2 spray intranasal QID 7 Days Qty: 15 0RF Rx Instructions: administer into each nostril ondansetron 4 mg tablet,disintegrating 4 mg PO Q6H PRN (Reason: nausea and vomiting) Qty: 30 2RF PNV cmb#95-ferrous fumarate-FA [] 28 mg iron- 800 mcg tablet 1 tablet PO DAILY Qty: 90 0RF Date of admission: 10/18/23 05:00 Primary Care Provider: PHYSICIAN,SERVER SOFTWARE ENGINEER Admitting Provider: Russell Martin Attending physician on admission: Russell Martin Condition: Stable
[2023-10-19 16:17] LABS: Rapid Plasma Reagin Non-Reactive (NonReactive)
[2023-10-20 09:23] VITALS: BP 107/72; PULSE 72; RESP 18; TEMP 36.8; O2SAT 100
== END 2023-10-19 13:13 | disposition home or self-care (01) | DRG 560 ==
LOC: ANHLDR 05:04 → ANHOB2 13:42
PROVIDERS: Admitting Provider Obstetrics & Gynecology; Visit Provider Obstetrics & Gynecology
DX: O69.1XX0 Labor and delivery complicated by cord around neck, with compression, not applicable or unspecified (principal); O70.0 First degree perineal laceration during delivery; O32.6XX0 Maternal care for compound presentation, not applicable or unspecified; Z3A.39 39 weeks gestation of pregnancy; Z37.0 Single live birth
CPT/HCPCS: 36415; 85014; 85018; 85025; 86592; 86850; 86900; 86901; A9270; J2590; J2795; J7120

== ENCOUNTER 2024-01-10 16:46 | Emergency (ER) | payer OTHER, SELFPAY ==
[2024-01-10 16:50] VITALS: BP 126/87; PULSE 73; RESP 16; TEMP 36.3; O2SAT 100
[2024-01-10 19:00] VITALS: BP 110/71; PULSE 68; RESP 16; O2SAT 100
--- NOTE | 2024-01-10 19:12 | ED.URI ---
HPI - URI/Sore Throat General Chief Complaint: Upper Respiratory Infection Stated Complaint: i think im having a sinus infection Time Seen by Provider: 01/10/24 19:06 History of Present Illness HPI Narrative: 28-year-old female presents to emergency department for sinus congestion x2 days. Patient states she has pain over the right maxillary sinus. States she had a fever of 101 yesterday. States her family is sick with similar symptoms. Reports history of sinusitis. Denies sore throat, otalgia, nausea vomiting. Patient is also reporting a small nodule to her left breast for 1 year. States that appeared after she year ago. She has not seen anyone about this. States it is nonpainful, symptoms it is itchy. Related Data Home Medications Medication Instructions Recorded Confirmed ferrous sulfate 325 mg (65 mg 325 mg PO DAILY 09/01/23 10/18/23 iron) tablet Allergies Allergy/AdvReac Type Severity Reaction Status Date / Time No Known Allergies Allergy Unknown Verified 01/10/24 19:00 Review of Systems Review of Systems: CONSTITUTIONAL: Denies fever, chills, or sweats. EYES: Denies visual changes, redness, or discharge. ENT: See HPI CARDIOVASCULAR: Denies chest pain, palpitations, or edema. RESPIRATORY: Denies cough or dyspnea. GASTROINTESTINAL: Denies abdominal pain, nausea, vomiting, or diarrhea. GENITOURINARY: Denies dysuria or hematuria. SKIN: See HPI MUSCULOSKELETAL: Denies back pain, joint pain, or myalgia. NEUROLOGIC: Denies headache, numbness, or weakness. PSYCHIATRIC: Denies anxiety or depression. [facility] Past Medical History Medical History No significant medical problems Family History Family History Mother Diabetes mellitus Grandparent Hypertension Social History Social History Smoking status: Never smoker Second hand tobacco smoke exposure: No Alcohol intake: never Substance use: never Substance use type: does not use Lack of Transportation: No Lack of Food: Never True Current Housing: I Have Housing Concerned About Future Housing: No Difficulty Paying Gas/Electric Bills: No Difficulty Paying for Meds: No Currently Unemployed: No Education: High School Diploma/GED Difficulty w/ Childcare or Family Care: No Living arrangements: other Additional living arrangements comments: Occupation/Education: other Additional occupation/education comments: stay at home mom Gender identity (if verbalized by the patient): Female Sexual Orientation (if Verbalized by the Patient): Straight or Heterosexual Spiritual care concerns: No Exam Narrative: GENERAL: Well-appearing, well-nourished, and in no acute distress. HEAD: Normocephalic, atraumatic. EYES: PERRLA and EOMI. ENT: Nares clear, no rhinorrhea or epistaxis. Mucous membranes moist. Posterior pharynx without erythema or edema. No tonsillar hypertrophy. Uvula is midline. Tenderness over the right maxillary sinus. No tenderness to the left maxillary sinus or to the frontal sinuses. NECK: Supple. CHEST: Clear to auscultation. No respiratory distress. HEART: Regular rate and rhythm. No murmur heard. Normal peripheral pulses. ABDOMEN: Soft, nontender, nondistended, normal active bowel sounds. EXTREMITIES: Normal range of motion. No edema. SKIN: <0.5cm oval, firm superficial brown nodule to the left breast. It is nontender. No surrounding erythema, no fluctuation or induration. NEURO: No focal deficits. Alert and oriented x3 Course Vital Signs Vital signs: Vital Signs Temperature 97.4 F L 01/10/24 16:50 Pulse Rate 73 01/10/24 16:50 Respiratory Rate 16 01/10/24 16:50 Blood Pressure 126/87 01/10/24 16:50 Pulse Oximetry 100 01/10/24 16:50 Temperature 97.4 F L 01/10/24 16:50 Pulse Rate 6
--- NOTE | 2024-01-10 19:33 | PC.NURSE ---
Bedside report obtained from NEAL Lacey. Assumed care at this time. Pt resting quietly per cart in nad at this time.
--- NOTE | 2024-01-10 19:55 | PC.NURSE ---
Pt's arrives to bedside and per another RN who spoke with him, he is upset that there was a viral swab ordered. Pt and then walked immediately out of department. Pt walks with steady gait and appears in nad distress. ERP notified.
[2024-01-10 20:06] LABS: Influenza A QL RT-PCR Negative (Negative); Influenza B QL RT-PCR Positive (Negative); RSV RNA, RT-PCR Negative (Negative); SARS-CoV-2 RNA PCR Negative (Negative)
== END 2024-01-10 20:06 | disposition left against medical advice (07) ==
LOC: ANHED 20:35
PROVIDERS: Emergency Provider Physician Assistant
DX: J06.9 Acute upper respiratory infection, unspecified (principal); N63.20 Unspecified lump in the left breast, unspecified quadrant; Z20.822 Contact with and (suspected) exposure to COVID-19
CPT/HCPCS: 87637; 99283